=== PATIENT | female | born 1950 | race Caucasian/White ===

== ENCOUNTER 2018-08-31 06:30 | Day surgery (SDC) | payer MEDICARE ==
[2018-08-17 11:06] VITALS: BMI 21.4
[2018-08-31] MEDS ORDERED: Lactated Ringer's 500 ML IV ONE ×2 (06:35→07:15)
[2018-08-31] MEDS ORDERED: Tropicamide 0.5% Opht Sol OS SCH ×2 (06:45→09:45)
[2018-08-31] MEDS ORDERED: Phenylephrine 2.5% Opht Soln OS SCH ×2 (06:45→09:45)
[2018-08-31] MEDS ORDERED: Povidone Iodine Ophthalmic 5% Soln ONE (07:22)
[2018-08-31] MEDS ORDERED: Tetracaine 0.5% Ophth (OR ONLY) ONE (07:22)
[2018-08-31] MEDS ORDERED: Chondroitin/Hyaluronate Opth Syringe KIT (0.55 ml-0.5 ml) IO ONE (07:23)
[2018-08-31] MEDS ORDERED: Hyaluronidase Human, Recombi 150 U/ML VIAL ONE (07:23)
[2018-08-31] MEDS ORDERED: Lidocaine 2% MPF (5 ml) Inj ONE (07:31)
[2018-08-31] MEDS ORDERED: Midazolam 2 MG/2 ML VIAL ONE (07:49)
[2018-08-31] MEDS ORDERED: Propofol 10 mg/ml Inj (20 ML) ONE (07:50)
[2018-08-31 07:51] LABS: CALCIUM 9.8 mg/dl (8.6-10.4)
[2018-08-31] MEDS: Tobramycin/Dexamethasone OPHT OINT ONE ×2 (08:04→08:22)
[2018-08-31] MEDS: Carbachol 0.01% IO ONE ×2 (08:04→08:17)
[2018-08-31 09:03] VITALS: RESP 15
[2018-08-31 09:17] VITALS: BP 124/68; PULSE 89; TEMP 97.7; O2SAT 100
--- NOTE | 2018-08-31 21:19 | OP ---
PROCEDURE DATE: 08/31/2018 PREOPERATIVE DIAGNOSIS: Complex cataract, left eye, for pupillary miosis. ATTENDING SURGEON: Nino Agudelo MD TYPE OF ANESTHESIA: Retrobulbar block. COMPLICATIONS: None. PROCEDURE: The patient was brought to the operating room and properly identified. Anesthesia staff administered intravenous sedation and retrobulbar block was given to the surgical eye. The patient was then prepped and draped in the usual sterile fashion. Attention was turned to the surgical eye. A lid speculum was placed into interpalpebral fissure. Sitting temporally, two paracentesis incisions were made. The anterior chamber was filled with viscoelastic and a triplanar clear corneal incision was made. Using a cystitome, anterior capsular leaflet was created. Utrata forceps were used to create a continuous curvilinear capsulorrhexis. Balanced salt solution on a cannula was used to hydrodissect and hydrodelineate the lens. The lens was then phacoemulsified with no complications. Automated irrigation and aspiration was used to remove the cortex. Viscoelastic was used to deepen the anterior chamber. The lens was placed in the capsular bag. Automated irrigation and aspiration was used to remove the viscoelastic. The anterior chamber was filled with Miochol. The wounds were hydrated with balanced salt solution. There was noted to be no leak at the end of the case and the lens was well positioned. The lid speculum was removed. The eye was given antibiotics and steroids and covered with a patch and shield. The patient was returned to the recovery room in stable condition. ADDENDUM Due to complexity of a very small pupil, a Malyugin Ring was used to dilate the pupil during the case and was removed at the end of the procedure. Nino Agudelo MD
== END 2018-08-31 09:20 | disposition home or self-care (01) ==
LOC: C.SDS 06:30
PROVIDERS: ATTEND Ophthalmology
DX: E11.36 Type 2 diabetes mellitus with diabetic cataract (principal); H57.03 Miosis; I10 Essential (primary) hypertension; E78.5 Hyperlipidemia, unspecified; Z79.84 Long term (current) use of oral hypoglycemic drugs; Z79.899 Other long term (current) drug therapy